=== PATIENT | male | born 1980 | race Caucasian/White ===

== ENCOUNTER 2017-11-04 15:30 | Outpatient (RCR) | payer OTHER, SELFPAY | END 2017-11-04 15:31 | LOC: PT 15:30 | PROVIDERS: Visit Provider Family Medicine | DX: M54.5 Low back pain (principal) | CPT/HCPCS: 97010; 97014; 97035; 97110; G0283 ==

== ENCOUNTER → 2017-11-10 13:51 | Outpatient (POV) | payer OTHER, SELFPAY ==
[2017-11-10 17:26] LABS: Basophils % 0.3 % (0.1-2.0); Eosinophils # 0.2 K/mm3 (0.0-0.4); Eosinophils % 2.1 % (0.1-12.0); Hematocrit 43.9 % (42.0-52.0); Hemoglobin 14.3 g/dL (14.1-18.0); Lymphocytes # 2.7 K/mm3 (0.7-4.5); Lymphocytes % 28.3 K/mm3 (10-50); Mean Corpuscular HGB Conc 32.6 g/dL (31.8-35.4); Mean Corpuscular Hemoglobin 29.3 pg (27.0-31.2); Mean Platelet Volume 7.7 fl (7.4-10.4); Monocytes # 0.6 K/mm3 (0.1-1.0); Monocytes % 6.3 % (1.7-9.3); Neutrophils % 63.1 % (37.0-80.0); Platelet Count 348 K/mm3 (142-424); Red Blood Count 4.88 M/mm3 (4.60-6.20); Red Cell Distribution Width 12.9 % (11.5-17.5); White Blood Count 9.5 K/mm3 (4.8-10.8)
[2017-11-10 19:11] LABS: Alanine Aminotransferase 49 U/L (12-78); Albumin Level 4.1 gm/dL (3.4-5.0); Albumin/Globulin Ratio 1.3 (1.1-1.8); Alkaline Phosphatase 75 U/L (46-116); Anion Gap 13.4 mEq/L (5-15); Aspartate Amino Transferase 23 U/L (15-37); Bilirubin,Total 0.2 mg/dL (0.2-1.0); Blood Urea Nitrogen 19 mg/dL (7-18); Calcium 9.7 mg/dL (8.5-10.1); Carbon Dioxide 30 mmol/L (21.0-32.0); Chloride 105 mmol/L (98-107); Creatinine,Serum 1.22 mg/dL (0.70-1.30); Estimated Glomerular Filt Rate 66 ml/min (>60); GFR (African American) 80 ML/MIN (>60); Globulin 3.2 gm/dl (1.3-3.2); Glucose 97 mg/dL (74-106); Potassium 4.4 mmoL/L (3.5-5.1); Sodium 144 mmol/L (136-145); Total Protein,Serum 7.3 gm/dL (6.4-8.2)
[2017-11-13 17:13] LABS: Immunoglobulin E, Total 82 IU/mL (0-100)
== END ==
PROVIDERS: Family Provider Family Medicine; Visit Provider Internal Medicine
DX: R06.00 Dyspnea, unspecified (principal); J30.9 Allergic rhinitis, unspecified; R00.0 Tachycardia, unspecified
CPT/HCPCS: 36415; 80053; 82785; 85025; 93005

== ENCOUNTER → 2017-11-11 13:03 | Outpatient (CLI) | payer OTHER, SELFPAY | PROVIDERS: PCP Family Medicine; Visit Provider Internal Medicine | DX: R00.1 Bradycardia, unspecified (principal); R06.00 Dyspnea, unspecified | CPT/HCPCS: 93225; 93226 ==

== ENCOUNTER → 2017-12-16 07:48 | Outpatient (CLI) | payer OTHER, SELFPAY ==
--- NOTE | 2017-12-16 07:51 | CA_ITS ---
PROCEDURE: 2-D M-mode and color Doppler study INDICATIONS FOR THE TEST: Chest pain + COPD Heart Murmur Tobacco Smoking Palpitations Fatigue Syncope Edema Hypertension+Diabetes Mellitus Rheumatic Fever SOB+LUNDY Obesity Hyperlipidemia Family History HD Additional History PATIENT INFORMATION HEIGHT: 69 WEIGHT: 190 GENDER: Male B/P: 137/77 2-D/M-MODE INTERPRETATION: 2-D MEASUREMENTS OBSERVED VALUES IN CMS Right Ventricular Dimension (RVDd) 2.1 Interventricular Septum (Thickness)(IVsd) 0.8 Left Ventricular Internal Dimensions(LVIDd) 4.8 Left Ventricular Posterior Wall (Thickness)(LVPWd) 1.1 Aortic Root 3.1 Aortic Cusp Separation 2.2 Left Atrial Dimensions (LAD) 3.8 2D 1. Left atrium is mildly enlarged, left ventricle is normal size, left ventricle wall thickness is upper limit of normal, there is preserved left ventricular systolic function, visually estimated ejection fraction 55% with no obvious regional wall motion abnormality. 2. The right atrium and right ventricle are normal size and contractility. 3. The aortic valve is minimally thickened and fibrosed. 4. The mitral and tricuspid valve are grossly normal. 5. The pulmonic valve is poorly visualized. 6. No significant pericardial effusion noted. DOPPLER INTERROGATION: Doppler interrogation of the aortic, mitral and tricuspid valvular presence of mild mitral and tricuspid regurgitation, tricuspid and jet velocity insufficient for calculation of the right ventricular systolic pressure, grade 1 diastolic dysfunction seen without tissue Doppler evidence of raised left atrial pressure. CONCLUSION: 1. Mildly enlarged left atrium, normal left ventricular size, visually estimated ejection fraction 55% with no obvious regional wall motion abnormality, grade 1 diastolic dysfunction seen without tissue Doppler evidence of raised left atrial pressure. 2. Mild mitral and tricuspid regurgitation 3. No significant pericardial effusion noted.
== END ==
PROVIDERS: Family Provider Family Medicine; PCP Family Medicine; Visit Provider Internal Medicine
DX: I20.8 Other forms of angina pectoris (principal)
CPT/HCPCS: 93017; 93306

== ENCOUNTER → 2017-12-23 16:46 | Outpatient (CLI) | payer OTHER, SELFPAY ==
--- NOTE | 2017-12-23 16:51 | XR_ITS ---
EXAM: XR lumbar spine min 4V HISTORY: ITS.REASON: LOW BACK PAIN ORDERING PHYSICIAN: MURIEL Yost PATIENT AGE: 37 years COMPARISON: None FINDINGS: Normal alignment. No fracture or dislocation. No lytic or blastic change. No significant degenerative change. The disc spaces are preserved. The SI joints have an unremarkable appearance IMPRESSION: Negative lumbar spine
== END ==
PROVIDERS: PCP Family Medicine; Visit Provider Physician Assistant
DX: M54.5 Low back pain (principal)
CPT/HCPCS: 72110

== ENCOUNTER → 2018-01-25 11:15 | Outpatient (CLI) | payer OTHER, SELFPAY ==
[2018-01-25 12:15] LABS: Basophils % 0.3 % (0.1-2.0); Eosinophils # 0.3 K/mm3 (0.0-0.4); Eosinophils % 3.7 % (0.1-12.0); Hematocrit 46.4 % (42.0-52.0); Hemoglobin 15.1 g/dL (14.1-18.0); Lymphocytes # 2.4 K/mm3 (0.7-4.5); Lymphocytes % 34.4 K/mm3 (10-50); Mean Corpuscular HGB Conc 32.5 g/dL (31.8-35.4); Mean Corpuscular Hemoglobin 29.2 pg (27.0-31.2); Mean Corpuscular Volume 89.7 fl (80-94); Mean Platelet Volume 7.4 fl (7.4-10.4); Monocytes # 0.5 K/mm3 (0.1-1.0); Monocytes % 6.8 % (1.7-9.3); Neutrophils # 3.9 K/mm3 (1.8-7.8); Neutrophils % 54.8 % (37.0-80.0); Platelet Count 401 K/mm3 (142-424); Red Blood Count 5.17 M/mm3 (4.60-6.20); Red Cell Distribution Width 12.4 % (11.5-17.5); White Blood Count 7.1 K/mm3 (4.8-10.8)
[2018-01-25 12:43] LABS: Alanine Aminotransferase 71 U/L (12-78); Alkaline Phosphatase 77 U/L (46-116); Anion Gap 10.6 mEq/L (5-15); Aspartate Amino Transferase 30 U/L (15-37); Bilirubin,Direct 0.1 mg/dL (0.0-0.2); Bilirubin,Total 0.3 mg/dL (0.2-1.0); Blood Urea Nitrogen 15 mg/dL (7-18); Carbon Dioxide 30 mmol/L (21.0-32.0); Chloride 103 mmol/L (98-107); Chol/HDL Ratio 5.7 (1-3.5); Cholesterol 233 mg/dL (140-200); Creatinine,Serum 1.11 mg/dL (0.70-1.30); Estimated Glomerular Filt Rate 74 ml/min (>60); Free T4 (Free Thyroxine) 0.86 ng/dl (0.76-1.46); GFR (African American) 90 ML/MIN (>60); Glucose 97 mg/dL (74-106); HDL Cholesterol 41 mg/dL (27-67); LDL Cholesterol 162 mg/dL (0-130); Potassium 4.6 mmoL/L (3.5-5.1); Sodium 139 mmol/L (136-145); Total Protein,Serum 7.9 gm/dL (6.4-8.2); Triglycerides 149 mg/dL (30-200); VLDL Cholesterol 30 mg/dL (0-40)
== END ==
PROVIDERS: Internal Medicine; Visit Provider Physician Assistant
DX: I20.8 Other forms of angina pectoris (principal)
CPT/HCPCS: 36415; 80048; 80061; 80076; 84439; 84443; 85025

== ENCOUNTER → 2018-02-24 10:20 | Outpatient (CLI) | payer OTHER, SELFPAY | PROVIDERS: PCP Family Medicine; Visit Provider Physician Assistant | DX: I47.1 Supraventricular tachycardia (principal); I10 Essential (primary) hypertension | CPT/HCPCS: 93225 ==

== ENCOUNTER → 2018-04-08 05:59 | Outpatient (CLI) | payer OTHER, SELFPAY ==
--- NOTE | 2018-04-08 06:01 | NM_ITS ---
History and Indications: Hypertension, hyperlipidemia, tobacco use, family history, chest pain, shortness of breath, palpitations and fatigue Procedure: Patient exercised on Richie protocol 11 minutes and 16 seconds, resting heart rate was 59 beats per resting blood pressure 124/69, with exercise maximum heart rate achieved was 1 46 bpm which is equal to 80% of the maximum predicted heart rate and a blood pressure was 149/84. The test was started due to shortness of breath and fatigue patient denied any complained of chest pain. Patient has good exercise capacity achieved 12.8mets of workload on treadmill, the blood pressure response to exercise was adequate patient did not achieve the target heart rate. Electrocardiogram: Resting electrocardiogram showed sinus rhythm, with exercise there is less than 1.[address] segment depression noted from the baseline EKG. The EKG portion of the exercise Myoview is nondiagnostic as patient did not achieve the target heart rate. Cardiac stress and resting SPECT images: Cardiac stress and rest SPECT images were obtained using technetium 99 Myoview 31.8 mCi at stress and 10.0 mCi at rest, gated SPECT further analysis of segmental wall motion and calculation of the ejection fraction also done. Cardiac stress and rest images show uniform myocardial activity without any segmental perfusion abnormality, computer derived ejection fraction is over 47% with no obvious regional wall motion abnormality, right ventricle is normal size and contractility. Conclusion: 1. The EKG portion of the exercise Myoview is nondiagnostic as patient did not achieve the target heart rate, patient has good exercise capacity achieved 12.8mets of workload on treadmill, the blood pressure response to exercise was adequate, there was no exercise-induced chest discomfort. 2. No obvious scintigraphic evidence of reversible ischemia seen at this level of exercise, computer derived ejection fraction is 47% with no obvious regional wall motion abnormality, right ventricle is normal size and contractility.
--- NOTE | 2018-04-08 09:15 | HMH.ITSHM ---
bisoprolol asa claritin
== END ==
PROVIDERS: Family Provider Family Medicine; PCP Family Medicine; Visit Provider Internal Medicine
DX: R06.02 Shortness of breath (principal); I47.1 Supraventricular tachycardia; I10 Essential (primary) hypertension; R94.31 Abnormal electrocardiogram [ECG] [EKG]; Z82.49 Family history of ischemic heart disease and other diseases of the circulatory system
CPT/HCPCS: 78452; 93017; A9502

== ENCOUNTER → 2018-05-07 14:09 | Outpatient (CLI) | payer OTHER, SELFPAY | PROVIDERS: PCP Family Medicine; Visit Provider Internal Medicine Cardiovascular Disease | DX: G47.30 Sleep apnea, unspecified (principal); R06.83 Snoring | CPT/HCPCS: 95806 ==

== ENCOUNTER → 2018-05-11 13:22 | Outpatient (CLI) | payer OTHER, SELFPAY ==
[2018-05-11 18:07] LABS: Anion Gap 11.8 mEq/L (5-15); Blood Urea Nitrogen 22 mg/dL (7-18); Calcium 9.2 mg/dL (8.5-10.1); Carbon Dioxide 30 mmol/L (21.0-32.0); Chloride 102 mmol/L (98-107); Creatinine,Serum 1.31 mg/dL (0.70-1.30); Estimated Glomerular Filt Rate 61 ml/min (>60); GFR (African American) 74 ML/MIN (>60); Glucose 133 mg/dL (74-106); Potassium 3.8 mmoL/L (3.5-5.1); Sodium 140 mmol/L (136-145)
== END ==
PROVIDERS: Visit Provider Internal Medicine Cardiovascular Disease
DX: R07.9 Chest pain, unspecified (principal); R06.00 Dyspnea, unspecified; E78.5 Hyperlipidemia, unspecified; I10 Essential (primary) hypertension; Z82.49 Family history of ischemic heart disease and other diseases of the circulatory system
CPT/HCPCS: 80048

== ENCOUNTER → 2018-05-27 11:08 | Outpatient (CLI) | payer OTHER, SELFPAY ==
[2018-05-27 11:58] LABS: Blood Urea Nitrogen 23 mg/dL (7-18); Calcium 9.3 mg/dL (8.5-10.1); Carbon Dioxide 26 mmol/L (21.0-32.0); Chloride 105 mmol/L (98-107); Creatinine,Serum 1.28 mg/dL (0.70-1.30); Estimated Glomerular Filt Rate 63 ml/min (>60); GFR (African American) 76 ML/MIN (>60); Glucose 143 mg/dL (74-106); Sodium 141 mmol/L (136-145)
== END ==
PROVIDERS: Urology; Visit Provider Internal Medicine Cardiovascular Disease
DX: R07.9 Chest pain, unspecified (principal); I10 Essential (primary) hypertension; Z82.49 Family history of ischemic heart disease and other diseases of the circulatory system; E78.5 Hyperlipidemia, unspecified
CPT/HCPCS: 36415; 80048

== ENCOUNTER → 2018-11-26 10:53 | Outpatient (CLI) | payer OTHER, SELFPAY ==
[2018-11-26 13:59] LABS: Alanine Aminotransferase 62 U/L (12-78); Albumin Level 4.1 gm/dL (3.4-5.0); Alkaline Phosphatase 73 U/L (46-116); Aspartate Amino Transferase 30 U/L (15-37); Bilirubin,Direct 0.1 mg/dL (0.0-0.2); Bilirubin,Indirect 0.2 mg/dL (0.0-0.9); Bilirubin,Total 0.3 mg/dL (0.2-1.0); Chol/HDL Ratio 3.4 (1-3.5); Cholesterol 125 mg/dL (140-200); HDL Cholesterol 37 mg/dL (27-67); LDL Cholesterol 70 mg/dL (0-130); Total Protein,Serum 7.3 gm/dL (6.4-8.2); Triglycerides 92 mg/dL (30-200); VLDL Cholesterol 18 mg/dL (0-40)
== END ==
PROVIDERS: Visit Provider Internal Medicine Cardiovascular Disease
DX: R06.02 Shortness of breath (principal); E78.2 Mixed hyperlipidemia; I10 Essential (primary) hypertension; I51.9 Heart disease, unspecified
CPT/HCPCS: 36415; 80061; 80076

== ENCOUNTER → 2019-05-24 14:44 | Outpatient (CLI) | payer OTHER, SELFPAY ==
[2019-05-24 15:11] LABS: Basophils % 0.5 % (0.1-2.0); Eosinophils # 0.3 K/mm3 (0.0-0.4); Hematocrit 40.5 % (42.0-52.0); Hemoglobin 12.9 g/dL (14.1-18.0); Lymphocytes # 2.2 K/mm3 (0.7-4.5); Lymphocytes % 34.7 % (10-50); Mean Corpuscular HGB Conc 31.8 g/dL (31.8-35.4); Mean Corpuscular Hemoglobin 28.2 pg (27.0-31.2); Mean Corpuscular Volume 88.6 fl (80-94); Mean Platelet Volume 6.7 fl (7.4-10.4); Monocytes # 0.4 K/mm3 (0.1-1.0); Monocytes % 6.5 % (1.7-9.3); Neutrophils # 3.4 K/mm3 (1.8-7.8); Neutrophils % 53.3 % (37.0-80.0); Platelet Count 307 K/mm3 (142-424); Red Blood Count 4.57 M/mm3 (4.60-6.20); White Blood Count 6.4 K/mm3 (4.8-10.8)
[2019-05-24 16:26] LABS: Anion Gap 10.8 mEq/L (5-15); Blood Urea Nitrogen 15 mg/dL (7-18); Carbon Dioxide 31 mmol/L (21.0-32.0); Chloride 105 mmol/L (98-107); Creatinine,Serum 1.12 mg/dL (0.70-1.30); Estimated Glomerular Filt Rate 73 ml/min (>60); GFR (African American) 88 ML/MIN (>60); Glucose 103 mg/dL (74-106); Potassium 3.8 mmoL/L (3.5-5.1); Sodium 143 mmol/L (136-145)
== END ==
PROVIDERS: Visit Provider Surgery
DX: L98.9 Disorder of the skin and subcutaneous tissue, unspecified (principal)
CPT/HCPCS: 36415; 80048; 85025

== ENCOUNTER → 2020-01-06 09:28 | Outpatient (CLI) | payer OTHER, SELFPAY ==
[2020-01-06 11:02] LABS: Anion Gap 14.1 mEq/L (5-15); Blood Urea Nitrogen 20 mg/dl (9-20); Calcium 10.3 mg/dl (8.4-10.2); Carbon Dioxide 29 mmol/L (22.0-30.0); Chloride 99 mmol/L (98-107); Estimated Glomerular Filt Rate 83 ml/min (>60); GFR (African American) 100 ML/MIN (>60); Glucose 99 mg/dl (74-100); Potassium 4.1 mmoL/L (3.5-5.1); Sodium 138 mmol/L (136-145)
== END ==
PROVIDERS: PCP Family Medicine; Visit Provider Internal Medicine Cardiovascular Disease
DX: R06.02 Shortness of breath (principal); E78.5 Hyperlipidemia, unspecified; I10 Essential (primary) hypertension; I51.89 Other ill-defined heart diseases; G47.33 Obstructive sleep apnea (adult) (pediatric)
CPT/HCPCS: 36415; 80048; 83880; 93306

== ENCOUNTER → 2021-01-09 14:54 | Outpatient (CLI) | payer OTHER, SELFPAY ==
[2021-01-09 16:38] LABS: Chloride 104 mmol/L (98-107); Sodium 140 mmol/L (136-145)
[2021-01-09 16:39] LABS: Potassium 4.1 mmoL/L (3.5-5.1)
[2021-01-09 16:42] LABS: Anion Gap 13.1 mEq/L (5-15); Blood Urea Nitrogen 21 mg/dl (9-20); Calcium 9.5 mg/dl (8.4-10.2); Carbon Dioxide 27 mmol/L (22.0-30.0); Estimated Glomerular Filt Rate 82 ml/min (>60); GFR (African American) 100 ML/MIN (>60); Glucose 104 mg/dl (74-100)
[2021-01-09 17:17] LABS: Ferritin 50.7 ng/ml (17.9-464)
== END ==
PROVIDERS: Urology; Visit Provider Specialist
DX: I10 Essential (primary) hypertension (principal); R06.02 Shortness of breath; E78.5 Hyperlipidemia, unspecified; I51.89 Other ill-defined heart diseases; E83.10 Disorder of iron metabolism, unspecified; G47.33 Obstructive sleep apnea (adult) (pediatric)
CPT/HCPCS: 36415; 80048; 82728

== ENCOUNTER 2021-04-12 09:15 | Emergency (ER) | payer OTHER, SELFPAY ==
[2021-04-12 09:37] VITALS: BP 120/76; PULSE 84; RESP 17; TEMP 36.9; O2SAT 97; BMI 28.0
[2021-04-12 09:44] VITALS: BP 120/76; PULSE 84; RESP 17; TEMP 36.9; O2SAT 97
--- NOTE | 2021-04-12 10:05 | HMH.EDUTC ---
[facility] [place] Clinical Impression: Exposure to COVID-19 virus Disposition: Home, Self-Care Condition on Discharge: Good Instructions: Preventing the Spread of Coronavirus Discharge Instructions Referrals: Gurpreet Brian MD [Primary Care Provider] - Time of Disposition: 10:09 Medical Decision Making - Tucker Inquiry Pt receiving controlled substance: No Vital Signs: 04/12/21 09:37 04/12/21 09:44 Temperature 98.4 F 98.4 F Temperature Source Oral Pulse Rate 84 Pulse Rate [Left] 84 Respiratory Rate 17 17 Blood Pressure 120/76 Blood Pressure [Right Arm] 120/76 Blood Pressure Mean [Right Arm] 90 02 Sat by Pulse Oximetry 97 Orders (Tests/Meds): ORDERS Category Date Time Status Covid-19 Nasal PCR ([facility]) Routine Lab 04/12/21 09:35 Received Covid-19 Nasal PCR ([facility]) Routine Lab 04/12/21 09:43 Ordered [facility] [place] - General Stated complaint: Covid Test Time Seen by Provider: 04/12/21 10:05 Mode of Arrival: Ambulatory Source of Information: Patient Limitations: No Limitations Description of Symptoms (Recalled from Triage Doc. by RN): Pt was exposed to sister in-law who is positive for Covid. Pt in asymptomatic. Pt states he would like to be tested for Covid. HEENT Symptoms (Recalled from RN notes): No Resp Symptoms (Recalled from RN notes): No Skin Symptoms (Recalled from RN notes): No MS Symptoms (Recalled from RN notes): No Functional Status (Recalled from RN notes): wnl - History of Present Illness Provider Complaint: Patient exposed to COVID19 on 04/07/2021. No symptoms. Needs negative test to return to work. Onset (ago): day(s) (5) Relieving factors: none Exacerbating factors: none Associated symptoms: denies other symptoms Treatments prior to arrival: none - Related Data Home Medications Medication Instructions Recorded Confirmed fluticasone propionate 50 1 spray INTRANASAL DAILY g 01/25/18 03/14/21 mcg/actuation nasal spray,suspension Aspirin [Aspir 81] 81 mg PO DAILY 04/05/18 03/14/21 Omeprazole [Omeprazole 40mg 40 mg PO QDAY 05/26/19 03/14/21 Capsule] ferrous sulfate 142 mg (45 mg 142 mg PO DAILY 02/14/21 03/14/21 iron) tablet,extended release Previous Rx's Medication Instructions Recorded bupropion HCl 150 mg tablet,12 hr 150 mg PO BID #60 each 12/14/20 sustained-release bisoprolol fumarate 5 mg tablet 5 mg PO DAILY #90 tab 01/10/21 tadalafil 20 mg tablet 20 mg PO DAILY #30 tab 02/08/21 atorvastatin 10 mg tablet See Rx Instructions .ROUTE 02/18/21 .COMPLEX #90 tab hydrochlorothiazide 12.5 mg capsule See Rx Instructions .ROUTE 02/18/21 .COMPLEX #30 cap losartan 50 mg tablet See Rx Instructions .ROUTE 02/18/21 .COMPLEX #30 tab spironolactone 25 mg tablet 25 mg PO Q OTHER DAY #45 tab 04/08/21 Allergies Allergy/AdvReac Type Severity Reaction Status Date / Time No Known Allergies Allergy Verified 04/12/21 09:43 - Worker's Comp Is this a Worker's Comp case?: No [facility] History - Hepatitis A Screen Drug use history?: No High risk sexual behaviors?: No History of sexually transmitted infection?: No Currently employed?: No Childcare worker?: No Do you have indoor plumbing?: Yes Do you have electricity?: Yes Attestation statement:: This patient has been screened for Hepatitis A risk factors. I have reviewed the patient's past medical history: Yes Medical History: Reports:: Asthma, Gastroesophageal Reflux Disease(GERD), Hyperlipidemia, Hypertension Denies:: Cancer, Diabetes Mellitus Type 1, Diabetes Mellitus Type 2, Internal Pacemaker, MRSA, Seizures Other Medical History: Reports: Other. Denies: Blood Transfusion Reaction Comment: GEOVANI Other Surgeries: Yes: Cardiac Catheterization, Sinus Surgery, Other. No: Pacemaker Amputation: No Fractures: No Comment: Vasectomy, sinus surgery, excision scalp lesion - Social History Smoking Status: Never smoker Tobacco Type: smokeless tobacco #Yrs smoked (if former smoker): 15 Al
== END 2021-04-12 10:15 | disposition home or self-care (01) ==
PROVIDERS: Emergency Provider Physician Assistant; PCP Family Medicine
DX: U07.1 COVID-19 (principal); K21.9 Gastro-esophageal reflux disease without esophagitis; I10 Essential (primary) hypertension; E78.5 Hyperlipidemia, unspecified; J45.909 Unspecified asthma, uncomplicated
CPT/HCPCS: 99202; G0463; U0003

== ENCOUNTER → 2021-07-29 10:55 | Outpatient (CLI) | payer OTHER, SELFPAY | PROVIDERS: PCP Family Medicine; Visit Provider Nurse Practitioner | DX: Z20.822 Contact with and (suspected) exposure to COVID-19 (principal) | CPT/HCPCS: C9803; U0003; U0005 ==

== ENCOUNTER → 2021-10-16 14:25 | Outpatient (CLI) | payer OTHER, SELFPAY ==
[2021-10-16 14:52] LABS: Basophils % 0.3 % (0.1-2.0); Eosinophils # 0.2 K/mm3 (0.0-0.4); Eosinophils % 2.6 % (0.1-12.0); Hematocrit 44.5 % (42.0-52.0); Hemoglobin 15.6 g/dL (14.1-18.0); Lymphocytes % 26.6 % (10-50); Mean Corpuscular Hemoglobin 30.5 pg (27.0-31.2); Mean Corpuscular Volume 87.2 fl (80-94); Mean Platelet Volume 7.7 fl (7.4-10.4); Monocytes # 0.4 K/mm3 (0.1-1.0); Monocytes % 4.6 % (1.7-9.3); Neutrophils % 65.9 % (37.0-80.0); Platelet Count 436 K/mm3 (142-424); Red Blood Count 5.11 M/mm3 (4.60-6.20); White Blood Count 7.6 K/mm3 (4.8-10.8)
[2021-10-16 15:50] LABS: Alanine Aminotransferase 31 U/L (12-78); Albumin Level 4.9 g/dl (3.5-5.0); Alkaline Phosphatase 67 U/L (38-126); Anion Gap 12.4 mEq/L (5-15); Aspartate Amino Transferase 35 U/L (17-59); Bilirubin,Direct 0.1 mg/dl (0.0-0.4); Bilirubin,Indirect 0.3 mg/dL (0.0-0.9); Bilirubin,Total 0.4 mg/dl (0.2-1.3); Bilirubin,Unconjugated 0.3 mg/dL (0.0-1.1); Blood Urea Nitrogen 19 mg/dl (9-20); Calcium 10.5 mg/dl (8.4-10.2); Carbon Dioxide 33 mmol/L (22.0-30.0); Chloride 100 mmol/L (98-107); Chol/HDL Ratio 3.7 (1-3.5); Cholesterol 167 mg/dl (140-200); Estimated Glomerular Filt Rate 82 ml/min (>60); GFR (African American) 99 ML/MIN (>60); Glucose 87 mg/dl (74-100); HDL Cholesterol 45 mg/dl (40-60); Potassium 4.4 mmoL/L (3.5-5.1); Sodium 141 mmol/L (136-145); Total Protein,Serum 7.6 g/dl (6.3-8.2); Triglycerides 112 mg/dl (30-150); VLDL Cholesterol 22 mg/dL (0-40)
[2021-10-16 16:04] LABS: Direct LDL Cholesterol 94.98 mg/dL (100-129)
[2021-10-16 16:07] LABS: Free T4 (Free Thyroxine) 0.98 ng/dl (0.78-2.19)
[2021-10-16 16:21] LABS: Thyroid Stimulating Hormone 0.84 uIU/mL (0.465-4.68)
== END ==
PROVIDERS: Visit Provider Physician Assistant
DX: R06.00 Dyspnea, unspecified (principal); I47.1 Supraventricular tachycardia; I10 Essential (primary) hypertension; R94.31 Abnormal electrocardiogram [ECG] [EKG]
CPT/HCPCS: 36415; 80048; 80061; 80076; 84439; 84443; 85025

== ENCOUNTER 2022-03-21 19:18 | Emergency (ER) | payer OTHER, SELFPAY ==
[2022-03-21 19:30] VITALS: BP 132/87; PULSE 120; RESP 20; TEMP 37.4; O2SAT 97; BMI 28.0
[2022-03-21 19:54] LABS: UTC Influenza A Antigen Negative (Negative); UTC Influenza B Antigen Negative (Negative)
[2022-03-21 20:08] LABS: Strep Scrn Group A (Rapid) Negative (Negative)
--- NOTE | 2022-03-21 20:14 | HMH.EDUTC ---
[facility] [place] Clinical Impression: Acute bronchitis Qualifiers: Bronchitis organism: unspecified organism Qualified Code(s): J20.9 - Acute bronchitis, unspecified Disposition: Home, Self-Care Condition on Discharge: Good Instructions: Sore Throat, Acute Bronchitis, DI for Fever (Symptom) -- Adult Additional Instructions: ? Start antibiotic today. Be sure to complete entire prescription even if feeling better ? Monitor temp. Tylenol every 4 hours as needed and / or ibuprofen every 6 hours as needed ( As long as your primary care physician has told you that it ok to take both. For fever/aches/pains ER if no less than 101 despite Tylenol or Motrin ? Humidifier/vaporizer or hot steamy shower ? Mucinex during the day for your cough and cough suppressant only at night. Be sure to drink lots of water. Insurance may not cover a prescriptions for mucinex. Might be cheaper to get 400mg tablets and take 2 tablet in the morning, mid-day and evening with lots of water. *Start steroid today. Helps with inflammation therefore, cough and wheezing. Follow directions on the package. Reviewed side effects. Patient reports taking them before. Follow up IMMEDIATELY for new or worsening of symptoms OR no noticeable improvement over the next 48-72 hours. 911 immediately for any life threatening symptoms such as chest pain or difficulty breathing Prescriptions: methylPREDNISolone [Medrol 4mg tab] 4 mg PO DIRECTED #21 tab Transmission Status: Received by [facility] Azithromycin [Z-Ronald 250mg Tab] 250 mg PO DIRECTED #6 tab Transmission Status: Received by [facility] Referrals: Gurpreet Brian MD [Primary Care Provider] - As needed Time of Disposition: 20:23 Medical Decision Making - Tucker Inquiry Pt receiving controlled substance: No Tucker was queried for this patient: No Vital Signs: 03/21/22 19:30 03/21/22 20:28 Temperature 99.3 F 99.3 F Temperature Source Oral Pulse Rate 120 H Pulse Rate [Right Brachial] 120 H Respiratory Rate 20 20 Blood Pressure 132/87 Blood Pressure [Right Arm] 132/87 Blood Pressure Mean [Right Arm] 102 Blood Pressure Source [Right Arm] Automatic Cuff Blood Pressure Position [Right Arm] Sitting 02 Sat by Pulse Oximetry 97 Oxygen Delivery Method Room Air - Lab Data Lab results reviewed: Yes: I reviewed the patient's lab results. Lab Results 03/21/22 19:30: Group A Strep Rapid Negative 03/21/22 19:53: Influenza Type A Ag Negative, Influenza Type B Ag Negative Orders (Tests/Meds): ED MEDICATIONS Discontinued Medications Generic Name Dose Route Start Last Admin Trade Name Mitchell PRN Reason Stop Dose Admin Ceftriaxone Sodium 1 gm 03/21/22 20:15 03/21/22 20:25 Ceftriaxone 1gm Vial IM 03/21/22 20:16 1 gm ONCE ONE Administration Lidocaine HCl 0 ml 03/21/22 20:15 03/21/22 20:25 Lidocaine 1% 5ml Pf Vial IM 03/21/22 20:16 2 ml ONCE ONE Administration Methylprednisolone Sodium Succinate 125 mg 03/21/22 20:15 03/21/22 20:25 Methylprednisolone Sod Succ 125mg Vial IM 03/21/22 20:16 125 mg ONCE ONE Administration ORDERS Category Date Time Status Full Resp Panel w/COVID ([facility]) Routine Lab 03/21/22 20:17 Received Strep Screen Confirmation Stat Micro 03/21/22 19:30 Received [facility] HPI - General Stated complaint: sore throat,JONES.Cough, congestion Time Seen by Provider: 03/21/22 20:14 Mode of Arrival: Ambulatory Source of Information: Patient, Spouse Limitations: No Limitations Description of Symptoms (Recalled from Triage Doc. by RN): PATIENT C/O COUGH, CONGESTION, WHEEZING, SORE THROAT, AND HEADACHE SINCE THURSDAY NIGHT HEENT Symptoms (Recalled from RN notes): Yes Resp Symptoms (Recalled from RN notes): Yes Skin Symptoms (Recalled from RN notes): No MS Symptoms (Recalled from RN notes): No Functional Status (Recalled from RN notes): WNL - History of Present Illness Provider Complaint: Patient states that he hasnt
[2022-03-21 20:21] LABS: Adenovirus,PCR Not Detected (NotDetected); Bordetella Pertussis Not Detected (NotDetected); Chlamydophila Pneumoniae, PCR Not Detected (NotDetected); Coronavirus 19, PCR Not Detected (NotDetected); Coronavirus 229E Not Detected (NotDetected); Coronavirus NL63 Not Detected (NotDetected); Coronavirus OC43 Not Detected (NotDetected); Coronovirus HKU1,PCR Not Detected (NotDetected); Human Metapneumovirus Not Detected (NotDetected); Influenza A, PCR Not Detected (NotDetected); Influenza AH1, 2009 Not Detected (NotDetected); Influenza AH1, PCR Not Detected (NotDetected); Influenza AH3,PCR Not Detected (NotDetected); Influenza B, PCR Not Detected (NotDetected); Mycoplasma Pneumoniae, PCR Not Detected (NotDetected); Parainfluenza 1, PCR Not Detected (NotDetected); Parainfluenza 2, PCR Not Detected (NotDetected); Parainfluenza 3, PCR Not Detected (NotDetected); Parainfluenza 4, PCR Not Detected (NotDetected); Respiratory Syncytial Virus Not Detected (NotDetected); Rhinovirus/Enterovirus Not Detected (NotDetected)
[2022-03-21 20:28] VITALS: BP 132/87; PULSE 120; RESP 20; TEMP 37.4; O2SAT 97
== END 2022-03-21 20:43 | disposition home or self-care (01) ==
PROVIDERS: Emergency Provider Nurse Practitioner; PCP Family Medicine
DX: J20.9 Acute bronchitis, unspecified (principal); K21.9 Gastro-esophageal reflux disease without esophagitis; E78.5 Hyperlipidemia, unspecified; I10 Essential (primary) hypertension
CPT/HCPCS: 87430; 87581; 87632; 87798; 87804; 96372; 99213; C9803; G0463; J0696; U0003; U0005

== ENCOUNTER → 2022-12-31 15:22 | Outpatient (CLI) | payer OTHER, SELFPAY ==
[2022-12-31 16:08] LABS: Basophils # 0.1 K/mm3 (0-0.2); Basophils % 1.1 % (0.1-2.0); Eosinophils # 0.3 K/mm3 (0.0-0.4); Eosinophils % 3.6 % (0.1-12.0); Hematocrit 44.7 % (42.0-52.0); Hemoglobin 14.4 g/dL (14.1-18.0); Lymphocytes # 2.4 K/mm3 (0.7-4.5); Lymphocytes % 28.5 % (10-50); Mean Corpuscular HGB Conc 32.3 g/dL (31.8-35.4); Mean Corpuscular Hemoglobin 29.4 pg (27.0-31.2); Mean Corpuscular Volume 90.9 fl (80-94); Mean Platelet Volume 7.4 fl (7.4-10.4); Monocytes # 0.5 K/mm3 (0.1-1.0); Neutrophils # 5.2 K/mm3 (1.8-7.8); Neutrophils % 60.7 % (37.0-80.0); Platelet Count 392 K/mm3 (142-424); Red Blood Count 4.91 M/mm3 (4.60-6.20); Red Cell Distribution Width 13.4 % (11.5-17.5); White Blood Count 8.5 K/mm3 (4.8-10.8)
[2022-12-31 16:42] LABS: Chloride 101 mmol/L (98-107); Sodium 140 mmol/L (136-145)
[2022-12-31 16:44] LABS: Blood Urea Nitrogen 21 mg/dl (9-20); Estimated Glomerular Filt Rate 60 ml/min (>60); GFR (African American) 73 ML/MIN (>60)
[2022-12-31 16:45] LABS: Alanine Aminotransferase 27 U/L (12-78); Albumin Level 4.4 g/dl (3.5-5.0); Alkaline Phosphatase 68 U/L (38-126); Aspartate Amino Transferase 27 U/L (17-59); Bilirubin,Direct 0.3 mg/dl (0.0-0.4); Bilirubin,Total 0.3 mg/dl (0.2-1.3); Calcium 9.3 mg/dl (8.4-10.2); Carbon Dioxide 28 mmol/L (22.0-30.0); Cholesterol 186 mg/dl (140-200); Glucose 87 mg/dl (74-100); HDL Cholesterol 37 mg/dl (40-60); Total Protein,Serum 7.2 g/dl (6.3-8.2)
[2022-12-31 16:56] LABS: Triglycerides 470 mg/dl (30-150)
[2022-12-31 17:05] LABS: Direct LDL Cholesterol 98.76 mg/dL (100-129); Free T4 (Free Thyroxine) 0.85 ng/dl (0.78-2.19)
[2022-12-31 17:18] LABS: Thyroid Stimulating Hormone 0.81 uIU/mL (0.465-4.68)
== END ==
PROVIDERS: PCP Family Medicine; Visit Provider Nurse Practitioner
DX: I11.9 Hypertensive heart disease without heart failure (principal); R06.00 Dyspnea, unspecified; R00.0 Tachycardia, unspecified; E78.2 Mixed hyperlipidemia; I51.9 Heart disease, unspecified; R94.31 Abnormal electrocardiogram [ECG] [EKG]; G47.33 Obstructive sleep apnea (adult) (pediatric); I63.9 Cerebral infarction, unspecified; E11.9 Type 2 diabetes mellitus without complications; Z87.891 Personal history of nicotine dependence
CPT/HCPCS: 36415; 80048; 80061; 80076; 84439; 84443; 85025

== ENCOUNTER → 2023-01-07 14:17 | Outpatient (CLI) | payer OTHER, SELFPAY | PROVIDERS: PCP Family Medicine; Visit Provider Nurse Practitioner | DX: R00.0 Tachycardia, unspecified (principal); I51.9 Heart disease, unspecified; I10 Essential (primary) hypertension; E78.2 Mixed hyperlipidemia; G47.33 Obstructive sleep apnea (adult) (pediatric); R94.31 Abnormal electrocardiogram [ECG] [EKG]; Z87.891 Personal history of nicotine dependence | CPT/HCPCS: 93306 ==

== ENCOUNTER → 2023-02-19 12:33 | Outpatient (CLI) | payer OTHER, SELFPAY ==
[2023-02-19 13:40] LABS: Ferritin 97.9 ng/ml (17.9-464)
== END ==
PROVIDERS: PCP Family Medicine; Visit Provider Nurse Practitioner Family
DX: E83.10 Disorder of iron metabolism, unspecified (principal); G25.81 Restless legs syndrome
CPT/HCPCS: 82728

== ENCOUNTER → 2023-06-01 15:42 | Outpatient (CLI) | payer BC, OTHER, SELFPAY ==
[2023-06-01 16:08] LABS: Basophils % 0.2 % (0.1-2.0); Eosinophils # 0.3 K/mm3 (0.0-0.4); Eosinophils % 4.6 % (0.1-12.0); Hematocrit 40.6 % (42.0-52.0); Lymphocytes % 29.9 % (10-50); Mean Corpuscular Hemoglobin 28.9 pg (27.0-31.2); Mean Corpuscular Volume 90.2 fl (80-94); Mean Platelet Volume 7.7 fl (7.4-10.4); Monocytes # 0.5 K/mm3 (0.1-1.0); Monocytes % 6.7 % (1.7-9.3); Neutrophils % 58.5 % (37.0-80.0); Platelet Count 333 K/mm3 (142-424); Red Cell Distribution Width 13.2 % (11.5-17.5); White Blood Count 6.8 K/mm3 (4.8-10.8)
[2023-06-01 16:33] LABS: Alanine Aminotransferase 27 U/L (12-78); Albumin Level 4.1 g/dl (3.5-5.0); Alkaline Phosphatase 64 U/L (38-126); Anion Gap 10.2 mEq/L (5-15); Aspartate Amino Transferase 26 U/L (17-59); Bilirubin,Unconjugated 0.3 mg/dL (0.0-1.1); Blood Urea Nitrogen 16 mg/dl (9-20); Calcium 9.3 mg/dl (8.4-10.2); Carbon Dioxide 30 mmol/L (22.0-30.0); Chloride 106 mmol/L (98-107); Estimated Glomerular Filt Rate 82 ml/min (>60); GFR (African American) 99 ML/MIN (>60); Glucose 83 mg/dl (74-100); Potassium 4.2 mmoL/L (3.5-5.1); Sodium 142 mmol/L (136-145); Total Protein,Serum 6.8 g/dl (6.3-8.2)
[2023-06-01 16:40] LABS: Bilirubin,Indirect 0.1 mg/dL (0.0-0.9); Bilirubin,Total 0.1 mg/dl (0.2-1.3)
[2023-06-01 17:00] LABS: Free T4 (Free Thyroxine) 0.94 ng/dl (0.78-2.19)
[2023-06-01 17:05] LABS: Thyroid Stimulating Hormone 1.29 uIU/mL (0.465-4.68)
[2023-06-10 01:08] LABS: Testosterone, Total, LC/MS 258.6 ng/dL (264.0-916.0)
== END ==
PROVIDERS: PCP Family Medicine; Visit Provider Internal Medicine
DX: R06.02 Shortness of breath (principal); R06.00 Dyspnea, unspecified; R00.0 Tachycardia, unspecified; I10 Essential (primary) hypertension; E78.5 Hyperlipidemia, unspecified; E11.9 Type 2 diabetes mellitus without complications; R94.31 Abnormal electrocardiogram [ECG] [EKG]; I63.9 Cerebral infarction, unspecified; G47.33 Obstructive sleep apnea (adult) (pediatric); Z87.891 Personal history of nicotine dependence; Z82.49 Family history of ischemic heart disease and other diseases of the circulatory system
CPT/HCPCS: 36415; 80048; 80076; 84439; 84443; 85025

== ENCOUNTER → 2023-10-01 13:00 | Outpatient (CLI) | payer BC, OTHER, SELFPAY ==
[2023-10-01 12:50] LABS: Basophils % 0.1 % (0.1-2.0); Eosinophils # 0.3 K/mm3 (0.0-0.4); Eosinophils % 4.8 % (0.1-12.0); Hemoglobin 14.9 g/dL (14.1-18.0); Lymphocytes # 2.4 K/mm3 (0.7-4.5); Lymphocytes % 35.2 % (10-50); Mean Corpuscular HGB Conc 33.1 g/dL (31.8-35.4); Mean Corpuscular Hemoglobin 30.7 pg (27.0-31.2); Mean Corpuscular Volume 92.9 fl (80-94); Mean Platelet Volume 9.4 fl (7.4-10.4); Monocytes # 0.6 K/mm3 (0.1-1.0); Monocytes % 8.3 % (1.7-9.3); Neutrophils # 3.5 K/mm3 (1.8-7.8); Neutrophils % 51.6 % (37.0-80.0); Platelet Count 382 K/mm3 (142-424); Red Blood Count 4.85 M/mm3 (4.60-6.20); Red Cell Distribution Width 13.6 % (11.5-17.5); White Blood Count 6.8 K/mm3 (4.8-10.8)
[2023-10-01 13:28] LABS: Alanine Aminotransferase 50 U/L (12-78); Albumin Level 4.3 g/dl (3.5-5.0); Albumin/Globulin Ratio 1.5 (1.1-1.8); Alkaline Phosphatase 68 U/L (38-126); Anion Gap 13.1 mEq/L (5-15); Aspartate Amino Transferase 36 U/L (17-59); Bilirubin,Total 0.4 mg/dl (0.2-1.3); Blood Urea Nitrogen 14 mg/dl (9-20); Calcium 9.5 mg/dl (8.4-10.2); Carbon Dioxide 28 mmol/L (22.0-30.0); Chloride 101 mmol/L (98-107); Chol/HDL Ratio 5.4 (1-3.5); Cholesterol 161 mg/dl (140-200); Estimated Glomerular Filt Rate 73 ml/min (>60); GFR (African American) 88 ML/MIN (>60); Globulin 2.9 g/dL (1.3-3.2); Glucose 100 mg/dl (74-100); HDL Cholesterol 30 mg/dl (40-60); Potassium 4.1 mmoL/L (3.5-5.1); Sodium 138 mmol/L (136-145); Total Protein,Serum 7.2 g/dl (6.3-8.2); Triglycerides 167 mg/dl (30-150); VLDL Cholesterol 33 mg/dL (0-40)
[2023-10-01 13:39] LABS: Direct LDL Cholesterol 96.21 mg/dL (100-129)
[2023-10-01 13:46] LABS: Free T4 (Free Thyroxine) 0.93 ng/dl (0.78-2.19)
[2023-10-01 13:58] LABS: Prostate Specific Ag Screen 0.6 ng/ml (0.0-4.0); Thyroid Stimulating Hormone 1.58 uIU/mL (0.465-4.68)
[2023-10-01 14:33] LABS: 25-OH Vitamin D, Total 41.3 ng/mL (30-100)
[2023-10-06 09:13] LABS: Testosterone, Total, LC/MS 346 ng/dL (.)
== END ==
PROVIDERS: PCP Internal Medicine; Visit Provider Internal Medicine
DX: Z00.00 Encounter for general adult medical examination without abnormal findings (principal); Z13.21 Encounter for screening for nutritional disorder; Z15.03 Genetic susceptibility to malignant neoplasm of prostate; Z13.29 Encounter for screening for other suspected endocrine disorder; Z13.1 Encounter for screening for diabetes mellitus; Z13.220 Encounter for screening for lipoid disorders; E29.1 Testicular hypofunction; Z12.5 Encounter for screening for malignant neoplasm of prostate; Z79.899 Other long term (current) drug therapy; E66.9 Obesity, unspecified; Z68.31 Body mass index [BMI] 31.0-31.9, adult
CPT/HCPCS: 80053; 80061; 82306; 83036; 84403; 84439; 84443; 85025; G0103

== ENCOUNTER 2024-09-16 16:50 | Emergency (ER) | payer BC, OTHER, SELFPAY ==
--- NOTE | 2024-09-16 17:34 | EXP.UTC ---
Discharge Plan Disposition Patient Disposition: Home, Self-Care Condition: Good Prescriptions Prescriptions: New benzonatate 100 mg capsule 100 mg PO TIDP PRN (Reason: Cough) Qty: 30 0RF methylprednisolone 4 mg Tablets,Dose Pack 4 mg PO DIRECTED 6 Days Qty: 21 0RF Rx Instructions: Take 1 pack as directed for 6 days amoxicillin-pot clavulanate 875-125 mg Tablet 1 tab PO Q12H Qty: 20 0RF No Action bisoprolol fumarate 5 mg tablet 5 mg PO DAILY Qty: 90 3RF atorvastatin 10 mg tablet 10 mg PO DAILY Qty: 90 3RF hydrochlorothiazide 12.5 mg capsule 12.5 mg PO DAILY Qty: 90 3RF losartan 50 mg tablet 50 mg PO DAILY Qty: 90 3RF spironolactone 25 mg tablet 25 mg PO .COMPLEX Qty: 45 3RF Rx Instructions: 25 mg orally TAke 1 tab Thursday, Thursday, Thursday, Thursday; omeprazole 40 mg capsule,delayed release(DR/EC) 40 mg PO QDAY Qty: 90 3RF Rx Instructions: swallow whole; do not crush, chew, dissolve, or cut/break Slow Fe 142 mg (45 mg iron) tablet extended release 142 mg PO DAILY bupropion HCl 150 mg tablet sustained-release 12 hr See Rx Instructions .ROUTE .COMPLEX Qty: 60 5RF Dose Instruction: TAKE ONE TABLET BY MOUTH TWICE DAILY Rx Instructions: TAKE ONE TABLET BY MOUTH TWICE DAILY Referrals Follow up/Referrals: Bart Mcdonnell DO [Primary Care Provider] - See instructions Activity Restrictions/Add. Instructions Additional Instructions/Restrictions: Drink plenty of fluids. Take tylenol or ibuprofen for pain or fever. Take the medications as directed. Follow up with your regular doctor. GO TO THE ER FOR ANY WORSENING SYMPTOMS Don't start the oral steroids (medrol dose pack) until tomorrow since you had the shot here Clinical Impressions Clinical Impression: Sinusitis Print Language Print Language: Divehi Discharge ED Provider: Sid Crawford [facility] [place] General Stated complaint: head stopped up,body aches,congestion Time Seen by Provider: 09/16/24 17:34 Related Data Home Medications ?Medication ?Instructions ?Recorded ?Confirmed ferrous sulfate 142 mg (45 mg 142 mg PO DAILY 02/14/21 09/16/24 iron) tablet,extended release (Slow Fe) Previous Rx's ?Medication ?Instructions ?Recorded atorvastatin 10 mg tablet 10 mg PO DAILY #90 tabs 01/05/24 bisoprolol fumarate 5 mg tablet 5 mg PO DAILY #90 tabs 01/05/24 hydrochlorothiazide 12.5 mg capsule 12.5 mg PO DAILY #90 caps 01/05/24 losartan 50 mg tablet 50 mg PO DAILY #90 tabs 01/05/24 omeprazole 40 mg capsule,delayed 40 mg PO QDAY GERD #90 caps 01/05/24 release spironolactone 25 mg tablet 25 mg PO .COMPLEX #45 tabs 01/05/24 bupropion HCl 150 mg tablet,12 hr See Rx Instructions .Route 05/24/24 sustained-release .COMPLEX #60 tabs amoxicillin 875 mg-potassium 1 tab PO Q12H #20 tabs 09/16/24 clavulanate 125 mg tablet benzonatate 100 mg capsule 100 mg PO TIDP PRN Cough #30 caps 09/16/24 methylprednisolone 4 mg tablets in 4 mg PO DIRECTED 6 days #21 tabs 09/16/24 a dose pack Allergies Allergy/AdvReac Type Severity Reaction Status Date / Time No Known Allergies Allergy Verified 01/05/24 15:10 [facility] Disclaimer: The information contained in this section may have been updated after the patient was seen, as this information can be updated by other users. Medical History Abnormal EKG Diastolic dysfunction Holter monitor, abnormal HTN (hypertension) Other forms of angina pectoris SOB (shortness of breath) Surgical History H/O sinus surgery H/O vasectomy Family History Father Cancer Other Coronary artery disease Hyperlipidemia Hypertension Kidney disease Social History Smoking Status: Former smoker tobacco type: smokeless tobacco second hand exposure: No alcohol intake: current alcohol intake frequency: a few times a month counseling provided: none substance use type: denies use current occupational status: employed Travel in the last 8 weeks: None household members: family and children housing: house marital status: current occupation: [employer] current occupational exposures/hazards: No caffeine: Yes ROS Obtained: Yes All systems reviewed & no additional complaints except as documented Constitutional Constitutional: Reports poor appetite Eyes Eyes: Reports system reviewed and no additional complaints, except as documented ENT Ears, Nose, Mouth, and Throat: Reports as per HPI Cardiovascular Cardiovascular: Reports system reviewed and no additional complaints, except as documented and Denies chest pain Respiratory Respiratory: Denies shortness of breath, Reports chest congestion, Reports cough, Denies stridor and Denies wheezing Gastrointestinal Gastrointestingal: Reports system reviewed and no additional complaints, except as documented; Denies abdominal pain, diarrhea or vomiting Musculoskeletal Musculoskeletal: Reports system reviewed and no additional complaints, except as documented and Denies arthralgias Integumentary/Breasts Skin/Breast: Reports system reviewed and no additional complaints, except as documented and Denies rash Neurologic Neurologic: Denies paresthesias Allergic/Immunologic Allergic/Immunologic: Denies wheezing Physical Exam General General appearance: alert and in no apparent distress Eye Eye exam: Present normal appearance, PERRL and EOMI ENT ENT exam: Present mucous membranes moist and normal external ear exam Expanded ENT Exam External ear exam: Present normal external inspection TM/Canal exam: Bilateral TM: erythema and bulging Nose exam: Absent sinus tenderness Nasal speculum exam: Bilateral: normal Mouth exam: Present normal external inspection; Absent drooling Teeth exam: Present normal inspection Throat exam: Present tonsillar erythema and tonsillomegaly Neck Neck exam: Present normal inspection, full ROM and trachea midline; Absent tenderness, lymphadenopathy or thyromegaly Chest Chest inspection: Present normal inspection and symmetric chest wall rise; Absent tenderness or rash Respiratory Respiratory exam: Present normal lung sounds bilaterally; Absent respiratory distress, wheezes, stridor or accessory muscle use Cardiovascular Cardiovascular exam: Present regular rate, normal rhythm and normal heart sounds Abdominal Exam Abdominal exam: Present soft; Absent distention, tenderness, guarding, rebound or rigidity Extremities Exam Extremities exam: Present normal inspection, full ROM and normal capillary refill; Absent tenderness or calf tenderness Back Exam Back exam: Present normal inspection and full ROM; Absent tenderness Neurological Exam Neurological exam: Present alert and oriented X3 Psychiatric Psychiatric exam: Present normal affect and normal mood Skin Skin exam: Present warm, dry, intact and normal color Lymphatic Lymphatic Findings: no adenopathy Medical Decision Making Medical Records Medical records reviewed: No I reviewed the patient's medical records. Screening: Per USPSTF and CDC recommendations, given the prevalence of disease in our region, it is our hospital?s policy to screen for HIV and viral Hepatitis for all patients aged 18 and over and those with ongoing risk factors. Tucker Inquiry Pt receiving controlled substance: No Lab Data Lab results reviewed: Yes I reviewed the patient's lab results.
[2024-09-16 17:35] VITALS: BP 133/82; PULSE 77; RESP 18; TEMP 36.8; O2SAT 96; BMI 31.0
[2024-09-16] MEDS: LIDOCAINE 1% 5ML PF VIAL IM (18:10)
[2024-09-16] MEDS: cefTRIAXone 1GM VIAL 1 GM IM (18:10)
[2024-09-16] MEDS: DEXAMETHASONE 4MG/ML 1ML VIAL 8 MG IM (18:10)
[2024-09-16 18:24] VITALS: BP 133/82; PULSE 77; RESP 18; TEMP 36.8; O2SAT 96
== END 2024-09-16 18:27 | disposition home or self-care (01) ==
PROVIDERS: Emergency Provider Nurse Practitioner Family; PCP Internal Medicine
DX: J01.90 Acute sinusitis, unspecified (principal)
CPT/HCPCS: 96372; 99213; G0381; J0696; J1100

== ENCOUNTER 2024-10-21 12:21 | Outpatient (CLI) | payer BC, OTHER, SELFPAY ==
[2024-10-21 13:26] LABS: Phosphorous 3.2 mg/dl (2.5-4.5)
== END 2024-10-21 23:59 | disposition home or self-care (01) ==
LOC: LAB 12:23
PROVIDERS: PCP Internal Medicine; Visit Provider Internal Medicine
DX: Z13.228 Encounter for screening for other metabolic disorders (principal)
CPT/HCPCS: 84100

== ENCOUNTER 2025-03-01 09:58 | Outpatient (CLI) | payer BC, OTHER, SELFPAY ==
--- NOTE | 2025-03-01 10:00 | CA_ITS ---
APPROVED REPORT Exam: Exercise Treadmill Technologist: Michelle Knight Ht: 5 ft 9 in Wt: 211 lbs BSA: 2.11 m2 HR: 75 bpm BP: 124/77 mmHg Rhythm: NSR Stress Test Details Test: Exercise stress testing was performed using a Richie protocol. HR Resting HR: 75 bpm Max Heart Rate (APMHR): 175 bpm Max HR Achieved: 150 bpm Target HR (85% APMHR): 149 bpm % of APMHR: 86 Recovery HR: 104 bpm HR response to stress: Normal HR response to stress BP Resting BP: 124.0/77.0 mmHg Max BP: 158.0/80.0 mmHg Recovery BP: 134.0/77.0 mmHg BP response to stress: Normal blood pressure response to stress. ECG Resting ECG: NSR Stress EC.[address] depression Clinical Exercise duration: 10.00 min Exercise capacity: 11.8 METs Stress ECG Conclusion Symptoms: Mild chest pressure, shortness of air. Arrhythmias/Ectopy: None ST-T Changes: 0.[address] depression CONCLUSION: Average exercise capacity. No evidence of ischemia on ECG at peak stress. Myoview images are reported separately. Electronically signed by : Linnea Mae MD 03/01/2025 12:59:09
--- OUTSIDE RECORDS SUMMARY | 2025-03-01 10:01 | XMS_ITS | Data Portability ---
Author Organization BANG ANTONIO Hernández [facility]OS[facility] Address [address] [facility] [place] [address] Assessment No assessment recorded. Plan of Treatment Reminders Order Date Submit Date Provider Last Modified By Organization Details Last Modified Time Details Appointments None record ed. Lab None record ed. Referral None record ed. Procedures None record ed. Surgeries None record ed. Imaging None record ed. Medication Orders None record ed. Patient TargetsNo targets recorded. Patient Instructions Encounter Date Encounter Id Patient Instructions Last Modified By Organization Details Last Modified Time 10/07/2017 [id number] ESS in 2011 for nasal polyps; doing well on allergy shots every 4 weeks; claritin and singulair along with fluticasone; also using inhaler to control his asthma; did struggle last spring with polyps and responded well to prednisone; will see him back in mid january to check his progress and repeat the steroid if necessary [email or web address] Not available 10/07/2017 16:48:59 Reason for Referral None Reported. Problems Name Problem SNOMED Code Status Onset Date Resolution Date Notes Provider Name and Address Organization Details Recorded Time Asthma 821240188 Active 2015 From Automated Load;Provi lindsay: Liam Galvez;Status : Active Not Available [facility] 6 08:53:02 Hypertrop hy of nasal turbinate s 21374221 Active 2015 From Automated Load;Provi lindsay: Liam Galvez;Status : Active Not Available [facility] 6 08:53:02 Allergic rhinitis 96463804 Active 2015 From Automated Load;Provi lindsay: Liam Galvez;Status : Active Not Available [facility] 6 08:53:02 Problem Notes None recorded. Procedures Surgical History Date Name Laterality Status Provider Name and Address Organization Details Recorded Time 7 Allergy Injection completed Shellie Stokes [facility] 10/07/2017 15:41:53 7 [facility] 15:40:49 7 [facility] 15:53:18 7 [facility] 03/17/2017 17:30:39 7 Endoscopy Nasal; Diagnostic completed Grazyna Peters [facility] 02/18/2017 11:02:27 2 Nsl/sins ndsc frnt tiss rmvl completed [facility] 02/18/2017 10:32:46 Imaging Results None recorded. Procedure Notes None recorded. Medical Equipment None Reported. Allergies No known drug allergies Medications Name Sig Start Date Stop Date Status Note LastModified by Organization Details LastModified Time tizanidine 4 mg tablet active Not Available Not Available Not Available meloxicam 15 mg tablet active Not Available Not Available Not Available prednisone 20 mg tablet 4 tabs daily on day 1, 3 tabs daily days 2-4, 2 tabs daily days 5-7 active Not Available Not Available No t Available montelukas t 10 mg tablet TAKE 1 TABLET BY MOUTH ONCE DAILY 2017 active Not Available Not Available Not Avai lable albuterol sulfate concentrat e 5 mg/mL(0.5 %) solution for nebulizati on active Medicatio n Descripti on: albuterol ; Route:inh alation; refills:0 Not Available Not Available Not Available fluticason e propionate 50 mcg/actuat ion nasal spray,susp ension INSTILL 2 SPRAYS IN EACH NOSTRIL ONCE DAILY active Not Available Not Available No t Available Spiriva with HandiHaler 18 mcg and inhalation capsules active Not Available Not Available Not Available Advair HFA 230 mcg-21 mcg/actuat ion aerosol inhaler USE DIRECTED UP TO TWICE DAILY RINSE MOUTH AFTER EACH USE 2016 active Not Available Not Available Not Avai lable EpiPen 2-Ronald 0.3 mg/0.3 mL injection, auto-injec tor As Directed PRN Anaphylax is active Not Available Not Available No t Available Incruse Ellipta 62.5 mcg/actuat ion powder for inhalation active Not Available Not Available N ot Available Breo Ellipta 200 mcg-25 mcg/dose powder for inhalation active Not Available Not Available N ot Available Vitals Date Recorded Body height Body mass index (BMI) Body weight Body temperature Heart rate Systolic blood pressure Diastolic blood pressure Provider Name and Address Organization Details Last Updated DateTime 7 175.26 cm 29.4 kg/m2 39818.3 2 g 97.3 [degF] 73 /min 130 mm[Hg] 76 mm[Hg] Carlitos Castillo [facility] 7 16:04:09 Social History Question Answer Notes LastModified by Organizat ion Details LastModified Time Tobacco Smoking Status [facility] 02/18/2017 10:32:21 What Is Your Level Of Alcohol Consumption? Occasional asalva Information not available 02/18/2017 What Was The Date Of Your Most Recent Tobacco Screening? 10/07/2017 Information not available 12/20/2019 Sex: Unknown Functional Status None recorded. Mental Status None recorded. Family History Relationship Description Onset Age of this Age Resolved Age Notes LastModified by Organization Details LastModified Time Father Family history of malignant neoplasm skin asalva Not available 2016 10:32:02 Father History of hypertension asalva Not available 10:32:14 Mother History of hypertension asalva Not available 10:32:14 Medical History Condition Response Anesthesia Complications N Cancer N Allergies/Hayfever Y Diabetes N Bleeding Disorder N Hypertension N Past Encounters Encounter ID Performer Location Encounter Start Date Encounter Closed Date Diagnosis/Indication Diagnosis SNOMED-CT Code Diagnosis ICD10 Code Diagnosis Note [id number] LIAM GALVEZ MD [place] [facility] [address] [place] [address] 02/18/2017 10:25:21 02/18/2017 12:27:27 Hypertrophy of nasal turbinates 40879863 J34.3 Allergic rhinitis 243746 04 J30.9 Nasal polyp 43191130 J33 .9 Chronic sinusitis 184318 00 J32.9 [id number] Marlys Acuname[place] [facility] [address] [place] [address] 03/17/2017 08:17:13 03/17/2017 17:49:18 [id number] Marlys [place] [facility] [address] [place] [address] 03/20/2017 15:30:48 03/20/2017 15:54:00 [id number] Marlys [place] [facility] [address] [place] [address] 10/06/2017 10:34:50 10/06/2017 15:54:38 [id number] Shellie Divya [place] [facility] [address] [place] [address] 10/07/2017 15:31:38 10/07/2017 15:43:32 [id number] MD [facility] [address] [place] [address] 10/07/2017 15:46:25 10/07/2017 16:47:49 Allergic rhinitis 25712887 J30.9 Asthma 254257293 J45.90 9 Nasal polyp 79929155 J33 .9 Health Concerns Section Related Observation LastModified by Organization Detai ls LastModified Time None Recorded Concern Status LastModified by Organization Details LastModified Time None Recorded Advance Directives Directive None Recorded Payers Encounter Date Sequence Insurance Name Policy Number Policy Marrero Covered Member ID Marrero Member ID Guarantor Name 03/17/2017 1 [facility] [id number] Venkat Dick [id number] Venkat Dick 03/20/2017 1 [facility] [id number] Venkat Dick [id number] Venkat Dick 10/06/2017 1 [facility] [id number] Venkat Dick [id number] Venkat Dick 10/07/2017 1 [facility] (O) [id number] Venkat Dick [id number] Venkat Dick 10/07/2017 1 [facility] [id number] Venkat Dick [id number] Venkat Dick Notes Date Note Type Note Provider Name and Address Organization Details Recorded Time 10/07/2017 text/html Mr. iDck is h ere for a follow up on allergies. He is on allergy shots every 4 weeks and is doing well on them. He takes an antihistamine and Singulair daily. He uses Flonase regularly. He is also on a daily inhaler. LIAM GALVEZ MD [address] [place] [address], [phone], [facility] 10/07/2017 16:49:42
[2025-03-01 11:05] LABS: Basophils % 0.4 % (0.1-2.0); Eosinophils # 0.4 Kmm3 (0.0-0.4); Eosinophils % 5.3 % (0.1-12.0); Hematocrit 44.8 % (42.0-52.0); Hemoglobin 14.7 g/dL (14.1-18.0); Lymphocytes # 3.2 K/mm3 (0.7-4.5); Lymphocytes % 42.5 % (10-50); Mean Corpuscular HGB Conc 32.8 g/dL (31.8-35.4); Mean Corpuscular Hemoglobin 29.5 pg (27.0-31.2); Mean Corpuscular Volume 89.8 fl (80-94); Mean Platelet Volume 8.8 fl (7.4-10.4); Monocytes # 0.5 K/mm3 (0.1-1.0); Monocytes % 6.5 % (1.7-9.3); Neutrophils # 3.4 K/mm3 (1.8-7.8); Neutrophils % 45.2 % (37.0-80.0); Nucleated Red Blood Cells # 0 10^3/uL; Nucleated Red Blood Cells % 0 %; Platelet Count 375 K/mm3 (142-424); Red Blood Count 4.99 M/mm3 (4.60-6.20); Red Cell Distribution Width 12.5 % (11.5-17.5); White Blood Count 7.5 K/mm3 (4.8-10.8)
[2025-03-01 11:34] LABS: Alanine Aminotransferase 41 U/L (12-78); Albumin Level 4.8 g/dl (3.5-5.0); Alkaline Phosphatase 65 U/L (38-126); Anion Gap 13.6 mEq/L (5-15); Aspartate Amino Transferase 32 U/L (17-59); Bilirubin,Direct 0.2 mg/dl (0.0-0.4); Bilirubin,Indirect 0.3 mg/dL (0.0-0.9); Bilirubin,Total 0.5 mg/dl (0.2-1.3); Bilirubin,Unconjugated 0.3 mg/dL (0.0-1.1); Blood Urea Nitrogen 14 mg/dl (9-20); Calcium 10.1 mg/dl (8.4-10.2); Carbon Dioxide 26 mmol/L (22.0-30.0); Chloride 105 mmol/L (98-107); Chol/HDL Ratio 4.8 (1-3.5); Cholesterol 190 mg/dl (140-200); Estimated Glomerular Filt Rate 72 ml/min (>60); GFR (African American) 88 ML/MIN (>60); Glucose 110 mg/dl (74-100); HDL Cholesterol 40 mg/dl (40-60); Potassium 4.6 mmoL/L (3.5-5.1); Sodium 140 mmol/L (136-145); Total Protein,Serum 7.1 g/dl (6.3-8.2); Triglycerides 201 mg/dl (30-150); VLDL Cholesterol 40 mg/dL (0-40)
[2025-03-01 11:52] LABS: Free T4 (Free Thyroxine) 0.76 ng/dl (0.78-2.19)
[2025-03-01 12:05] LABS: Thyroid Stimulating Hormone 0.11 uIU/mL (0.465-4.68)
== END 2025-03-01 23:59 | disposition home or self-care (01) ==
LOC: RT 09:59
PROVIDERS: PCP Internal Medicine; Visit Provider Physician Assistant
DX: R94.31 Abnormal electrocardiogram [ECG] [EKG] (principal); R06.02 Shortness of breath; R07.9 Chest pain, unspecified
CPT/HCPCS: 36415; 80048; 80061; 80076; 83735; 84439; 84443; 85025; 93017; 93018

== ENCOUNTER 2025-03-17 14:58 | Outpatient (CLI) | payer BC, OTHER, SELFPAY ==
[2025-03-17 14:42] LABS: Free T4 (Free Thyroxine) 0.85 ng/dl (0.78-2.19)
[2025-03-17 22:30] LABS: Thyroid Stimulating Hormone 1.15 uIU/mL (0.465-4.68)
--- OUTSIDE RECORDS SUMMARY | 2025-03-20 15:00 | XMS_ITS | Data Portability ---
Author Organization [facility] ANTONIO Hernández [facility]OS[facility] Address [address] [facility] [place] [address] Assessment No assessment recorded. Plan of Treatment [...] By Organization Details Last Modified Time 10/07/2017 [id number] ESS in 2011 for nasal polyps; doing [...] and Address Organization Details Recorded Time Asthma 481671950 Active 2015 From Automated Load;Provi lindsay: Liam Galvez;Status : Active Not Available [facility] 6 08:53:02 Hypertrop hy of nasal turbinate s 35816938 Active 2015 From Automated Load;Provi lindsay: Liam Galvez;Status : Active Not Available [facility] 6 08:53:02 Allergic rhinitis 49048080 Active 2015 From Automated Load;Provi lindsay: Liam Galvez;Status : Active Not Available [facility] 6 08:53:02 Problem Notes None recorded. Procedures Surgical History Date Name Laterality Status Provider Name and Address Organization Details Recorded Time 7 Allergy Injection completed Shellie Stokes [facility] 10/07/2017 15:41:53 7 [facility]2017 15:40:49 7 [facility]2017 15:53:18 7 [facility] 03/17/2017 17:30:39 7 Endoscopy Nasal; Diagnostic completed Grazyna Peters [facility] 02/18/2017 11:02:27 2 Nsl/sins ndsc frnt tiss rmvl completed [facility] 02/18/2017 10:32:46 Imaging Results None recorded. Procedure [...] Updated DateTime 7 175.26 cm 29.4 kg/m2 94356.3 2 g 97.3 [degF] 73 /min 130 mm[Hg] 76 mm[Hg] Daisyluly Blankenshipa [facility] 7 16:04:09 Social History Question Answer Notes LastModified by Organizat A [employer] Details LastModified Time Tobacco Smoking Status [facility] 02/18/2017 10:32:21 What Was The Date Of Your Most Recent Tobacco Screening? 10/07/2017 Information n ot available 12/20/2019 Sex: Unknown Functional Status Question Answer Note LastModified by Organizat A [employer] Details LastModified Time What is your level of alcohol consumption? Occasional asalva Information not available 02/18/2017 Mental Status None recorded. Family History Relationship Description Onset Age of this Age Resolved Age Notes LastModified by Organization Details LastModified Time Father Family history of malignant neoplasm skin asalva Not available 2016 10:32:02 Father History of hypertension asalva Not available 10:32:14 Mother History of hypertension asalva Not available 10:32:14 Medical History Condition Response Cancer N Bleeding Disorder N Anesthesia Complications N Allergies/Hayfever Y Diabetes N Hypertension N Past Encounters Encounter ID Performer Location Encounter Start Date Encounter Closed Date Diagnosis/Indication Diagnosis SNOMED-CT Code Diagnosis ICD10 Code Diagnosis Note [id number] LIAM GALVEZ MD [place] [facility] [address] [place] [address] 02/18/2017 10:25:21 02/18/2017 12:27:27 Hypertrophy of nasal turbinates 95997711 J34.3 Allergic rhinitis 439951 04 J30.9 Nasal polyp 06850845 J33 .9 Chronic sinusitis 216541 00 J32.9 [id number] HEMA COOLEY MD [place] [facility] [address] [place] [address] 03/17/2017 08:17:13 03/17/2017 17:49:18 [id number] STACEY KUMARI APRN [place] [facility] [address] 7 03/20/2017 15:30:48 03/20/2017 15:54:00 [id number] HEMA COOLEY MD [place] [facility] [address] [place] [address] 10/06/2017 10:34:50 10/06/2017 15:54:38 [id number] LIAM GALVEZ MD [place] [facility] [address] [place] [address] 10/07/2017 15:31:38 10/07/2017 15:43:32 [id number] LIAM GALVEZ MD [place] [facility] [address] 7 10/07/2017 15:46:25 10/07/2017 16:47:49 Allergic rhinitis 16698723 J30.9 Asthma 198877103 J45.90 9 Nasal polyp 20177233 J33 .9 Health Concerns Section Related Observation LastModified by Organization Detai ls LastModified Time None Recorded Concern Status LastModified by Organization Details LastModified Time None Recorded Advance Directives Directive None Recorded Payers Insurance Date Sequence Insurance Name Policy Number Policy Marrero Covered Member ID Marrero Member ID Guarantor Name 09/26/2020 1 [facility] (O) [id number] Venkat Ariela Dick [id number] Venkat Dick Notes Date Note Type Note Provider Name and Address Organization Details Recorded Time 10/07/2017 text/html Mr. Dick is h ere for a follow up on allergies. He is on allergy shots every 4 weeks and is doing well on them. He takes an antihistamine and Singulair daily. He uses Flonase regularly. He is also on a daily inhaler. LIAM GALVEZ [facility] [place], [address], [facility] 10/07/2017 16:49:42
== END 2025-03-17 23:59 | disposition home or self-care (01) ==
LOC: LAB.DROPOF 03-20 14:59
PROVIDERS: PCP Internal Medicine; Visit Provider Internal Medicine
DX: Z13.29 Encounter for screening for other suspected endocrine disorder (principal); E03.9 Hypothyroidism, unspecified
CPT/HCPCS: 84439; 84443